=== PATIENT | male | born 2005 | race Hispanic/Latino ===

== ENCOUNTER 2023-02-27 23:47 | Emergency (ER) | payer BC ==
[2023-02-28] MEDS ORDERED: Ketorolac Tromethamine 30 MG/ML VIAL ONE (00:27)
== END 2023-02-28 01:03 | disposition home or self-care (01) ==
LOC: CSHERS 23:47
DX: M25.512 Pain in left shoulder (principal)
CPT/HCPCS: 71045; 93005; 96372; J1885